=== PATIENT | male | born 1975 | race Caucasian/White ===

== ENCOUNTER 2020-12-02 20:17 | Emergency (ER) | payer MEDICARE ==
[~2020-12-02] VITALS: Ht 182.9 cm; Wt 106.6 kg
[2020-12-02] MEDS ORDERED: CLONAZEPAM 0.5 MG TABLET PO ONE (21:00)
[2020-12-02] MEDS ORDERED: CLONAZEPAM 0.5 MG TABLET ONE ×2 (21:07→21:09)
--- NOTE | 2020-12-02 21:23 | NUR ---
Patient given written and verbal discharge instructions. Patient verbalizes understanding of instructions. Patient is ambulatory with steady gait. Refuses offer of nursing home placement. Patient given list of available shelters in surrounding area. Patient out of ER with steady gait, provided with food and water per patient request, VSS, no acute signs of distress, all belongings taken, refused all other services available at this time.
[2020-12-02 21:26] VITALS: BP 117/81
== END 2020-12-02 21:26 | disposition home or self-care (01) ==
LOC: ER 20:27
DX: F41.9 Anxiety disorder, unspecified (principal); Z76.0 Encounter for issue of repeat prescription; J44.9 Chronic obstructive pulmonary disease, unspecified; Z59.0 Homelessness; F17.210 Nicotine dependence, cigarettes, uncomplicated
CPT/HCPCS: A4663

== ENCOUNTER 2020-12-03 16:29 | Emergency (ER) | payer MEDICARE ==
[~2020-12-03] VITALS: Ht 182.9 cm; Wt 106.6 kg
--- NOTE | 2020-12-03 16:52 | NUR ---
at bedside for assessment
[2020-12-03] MEDS ORDERED: CLONAZEPAM 0.5 MG TABLET PO ONE (17:00)
[2020-12-03] MEDS ORDERED: CLONAZEPAM 0.5 MG TABLET ONE (17:03)
--- NOTE | 2020-12-03 17:08 | NUR ---
Patient discharged to home in stable condition. Took all belongings. No signs of acute ditress noted. Written and verbal after care instructions given. Patient verbalizes understanding of instructions. Stressed follow up or return to ER for worsening s/s.
[2020-12-03 17:10] VITALS: BP 118/80
== END 2020-12-03 17:10 | disposition home or self-care (01) ==
LOC: ER 16:32
DX: F41.9 Anxiety disorder, unspecified (principal); Z76.0 Encounter for issue of repeat prescription; J44.9 Chronic obstructive pulmonary disease, unspecified; F17.210 Nicotine dependence, cigarettes, uncomplicated; Z59.0 Homelessness
CPT/HCPCS: A4663

== ENCOUNTER 2022-03-23 21:31 | Emergency (ER) | payer MEDICARE ==
[~2022-03-23] VITALS: Ht 182.9 cm; Wt 95.3 kg
[~2022-03-23 21:31] MED LIST: ALBU6.7H9 INH; CLON1TAB PO
--- NOTE | 2022-03-23 21:50 | NUR ---
Dr. Harrington at bedside. MSE in progress.
[2022-03-23] MEDS ORDERED: CLON2TAB11 PO (22:03)
[2022-03-23] MEDS ORDERED: CLONAZEPAM 1 MG TABLET ONE (22:09)
--- NOTE | 2022-03-23 22:12 | NUR ---
Patient discharged to home in stable condition. A/O x4. NAD noted. [employer] with patient. Written and verbal after care instructions given. Patient verbalizes understanding of instructions. Stressed follow up or return to ER for worsening s/s.
[2022-03-23] MEDS ORDERED: CLONAZEPAM 0.5 MG TABLET PO ONE (22:15)
[2022-03-23 23:06] VITALS: BP 120/78
== END 2022-03-23 22:12 | disposition home or self-care (01) ==
LOC: MERGE 21:31 → ER 21:31
DX: F41.9 Anxiety disorder, unspecified (principal); J44.9 Chronic obstructive pulmonary disease, unspecified; F17.210 Nicotine dependence, cigarettes, uncomplicated; Z79.899 Other long term (current) drug therapy
CPT/HCPCS: A4663

== ENCOUNTER 2022-04-01 21:06 | Emergency (ER) | payer MEDICARE ==
[~2022-04-01] VITALS: Ht 177.8 cm; Wt 90.7 kg
[~2022-04-01 21:06] MED LIST changes: +CLON2TAB11 PO
--- NOTE | 2022-04-01 22:15 | NUR ---
Dr Gold at bedside MSE in progress
[2022-04-01] MEDS ORDERED: CLON1TAB PO (22:31)
--- NOTE | 2022-04-01 22:35 | NUR ---
Patient discharged to home in stable condition. Written and verbal after care instructions given. Patient verbalizes understanding of instructions. Stressed follow up or return to ER for worsening s/s. Patient is a/ox4, NAD noted. Patient is able to walk with steady gait
[2022-04-01 22:42] VITALS: BP 132/71
== END 2022-04-01 22:35 | disposition home or self-care (01) ==
LOC: ER 21:09
DX: F41.9 Anxiety disorder, unspecified (principal); Z76.0 Encounter for issue of repeat prescription; Z59.00 Homelessness unspecified; F17.210 Nicotine dependence, cigarettes, uncomplicated; J44.9 Chronic obstructive pulmonary disease, unspecified
CPT/HCPCS: A4663

== ENCOUNTER 2022-04-04 00:50 | Emergency (ER) | payer MEDICARE ==
[~2022-04-04] VITALS: Ht 177.8 cm; Wt 90.7 kg
[2022-04-04] MEDS ORDERED: ASPIRIN 81 MG TAB.CHEW PO ONE (02:15)
[2022-04-04] MEDS ORDERED: ASPIRIN 81 MG TAB.CHEW ONE (02:23)
[2022-04-04 02:28] LABS: HEMATOCRIT 43.5 % (36.7-47.1); MEAN CORPUSCULAR HEMOGLOBIN 32.3 uug (23.8-33.4); MEAN CORPUSCULAR VOLUME 92.1 fL (73.0-96.2); PLATELET COUNT (AUTO) 210 K/uL (152-348)
[2022-04-04 02:33] LABS: CARBON DIOXIDE 30 mmol/L (21-32); CHLORIDE 105 mmol/L (98-107); GLUCOSE 123 mg/dL (74-106); POTASSIUM 3.4 mmol/L (3.5-5.1); UREA NITROGEN, BLOOD 13 mg/dL (7-18)
[2022-04-04 02:45] LABS: ALANINE AMINOTRANSFERASE 24 U/L (16-63); ALKALINE PHOSPHATASE 63 U/L (50-136); ASPARTATE AMINOTRANSFERASE 17 U/L (15-37); BILIRUBIN,DIRECT 0.1 mg/dL (0.0-0.2); BILIRUBIN,TOTAL 0.5 mg/dL (0.2-1.0); TOTAL PROTEIN, SERUM 6.2 g/dL (6.4-8.2)
[2022-04-04 03:01] LABS: MAGNESIUM 1.8 mg/dL (1.8-2.4)
[2022-04-04] MEDS ORDERED: POTASSIUM BICARBONATE/CIT AC 25 MEQ TABLET.EFF PO ONE (04:30)
[2022-04-04] MEDS ORDERED: CYANOCOBALAMIN 1000 MCG/ML VIAL IM ONE (04:30)
[2022-04-04] MEDS ORDERED: MAGNESIUM SULFATE/D5W 300 ML ONE (04:31)
[2022-04-04] MEDS ORDERED: CYANOCOBALAMIN 1000 MCG/ML VIAL ONE (04:31)
[2022-04-04] MEDS ORDERED: POTASSIUM BICARBONATE/CIT AC 25 MEQ TABLET.EFF ONE (04:31)
[2022-04-04] MEDS: MAGNESIUM SULFATE/D5W 100 ML IV SCH ×3 (04:45→05:31)
--- NOTE | 2022-04-04 04:48 | NUR ---
Patient is a/ox4, NAD noted.
[2022-04-04] MEDS ORDERED: CLON1TAB PO (05:05)
--- NOTE | 2022-04-04 05:43 | NUR ---
Patient discharged to home in stable condition. Written and verbal after care instructions given. Patient verbalizes understanding of instructions. Stressed follow up or return to ER for worsening s/s. Patient is a/ox4, NAD noted, Patient is able to walk with steady gait
[2022-04-04 06:02] VITALS: BP 128/81
== END 2022-04-04 06:02 | disposition home or self-care (01) ==
LOC: ER 00:53
DX: R07.89 Other chest pain (principal); E83.42 Hypomagnesemia; F41.9 Anxiety disorder, unspecified; E87.6 Hypokalemia; Z59.00 Homelessness unspecified; F17.210 Nicotine dependence, cigarettes, uncomplicated; J44.9 Chronic obstructive pulmonary disease, unspecified; Z79.899 Other long term (current) drug therapy; R06.2 Wheezing
CPT/HCPCS: 99285; 96365; 71045; 80076; 80048; 82607; 83880; 83735; 85025; 85379; 84484; 36415; 93005; 96372; J3420; J3475; A4663

== ENCOUNTER 2022-04-07 22:57 | Emergency (ER) | payer MEDICARE ==
[~2022-04-07] VITALS: Ht 182.9 cm; Wt 95.3 kg
--- NOTE | 2022-04-07 23:30 | NUR ---
Dr. Ahumada at bedside for MSE.
--- NOTE | 2022-04-07 23:40 | NUR ---
Pt out of ER for CT.
--- NOTE | 2022-04-07 23:50 | NUR ---
Pt back to ER from CT.
[2022-04-08] MEDS ORDERED: ASPIRIN 325 MG TABLET ONE (00:44)
[2022-04-08] MEDS ORDERED: POTASSIUM BICARBONATE/CIT AC 25 MEQ TABLET.EFF ONE (00:44)
[2022-04-08] MEDS ORDERED: POTASSIUM BICARBONATE/CIT AC 25 MEQ TABLET.EFF PO ONE (00:45)
[2022-04-08] MEDS ORDERED: ASPIRIN 325 MG TABLET PO ONE (00:45)
--- NOTE | 2022-04-08 00:52 | NUR ---
Patient given written and verbal discharge instructions. Patient verbalizes understanding of instructions. Patient is ambulatory with steady gait. Refuses offer of long-term placement. Patient given list of available shelters in surrounding area. Pt provided with food and juice per patient request, refuses all other services available at this time, VSS, no acute signs of distress, all belongings taken.
[2022-04-08 00:53] VITALS: BP 104/69
== END 2022-04-08 00:54 | disposition home or self-care (01) ==
LOC: ER 23:01
DX: R42 Dizziness and giddiness (principal); E53.8 Deficiency of other specified B group vitamins; Z59.00 Homelessness unspecified; F17.210 Nicotine dependence, cigarettes, uncomplicated; J44.9 Chronic obstructive pulmonary disease, unspecified; F41.9 Anxiety disorder, unspecified
CPT/HCPCS: 70450; A4663

== ENCOUNTER 2022-06-17 15:36 | Emergency (ER) | payer MEDICARE ==
[~2022-06-17] VITALS: Ht 182.9 cm; Wt 97.5 kg
[2022-06-17] MEDS ORDERED: ALBU6.7H9 INH (16:34)
[2022-06-17] MEDS ORDERED: CLON2TAB11 PO (16:34)
[2022-06-17] MEDS ORDERED: CLONAZEPAM 0.5 MG TABLET PO ONE (16:45)
[2022-06-17] MEDS ORDERED: CLONAZEPAM 1 MG TABLET ONE (16:51)
[2022-06-17] MEDS ORDERED: ACETAMINOPHEN 325 MG TABLET PO ONE (17:15)
[2022-06-17] MEDS ORDERED: ACETAMINOPHEN 325 MG TABLET ONE (17:18)
[2022-06-17 17:40] LABS: HEMATOCRIT 47.2 % (36.7-47.1); MEAN CORPUSCULAR HEMOGLOBIN 31.1 uug (23.8-33.4); MEAN CORPUSCULAR VOLUME 92.1 fL (73.0-96.2); PLATELET COUNT (AUTO) 272 K/uL (152-348)
[2022-06-17 18:01] LABS: CARBON DIOXIDE 27 mmol/L (21-32); CHLORIDE 106 mmol/L (98-107); CREATININE 0.9 mg/dL (0.6-1.3); GLUCOSE 93 mg/dL (74-106); UREA NITROGEN, BLOOD 15 mg/dL (7-18)
[2022-06-17 18:05] LABS: ALANINE AMINOTRANSFERASE 41 U/L (16-63); ALKALINE PHOSPHATASE 79 U/L (50-136); ASPARTATE AMINOTRANSFERASE 30 U/L (15-37); BILIRUBIN,DIRECT 0.1 mg/dL (0.0-0.2); BILIRUBIN,TOTAL 0.5 mg/dL (0.2-1.0); TOTAL PROTEIN, SERUM 7.2 g/dL (6.4-8.2)
--- NOTE | 2022-06-17 18:23 | NUR ---
Patient discharged to home in stable condition. Written and verbal after care instructions given. Patient verbalizes understanding of instructions. Stressed follow up or return to ER for worsening s/s.
[2022-06-17 19:03] VITALS: BP 152/75
== END 2022-06-17 18:30 | disposition home or self-care (01) ==
LOC: ER 15:36
DX: F41.9 Anxiety disorder, unspecified (principal); R07.9 Chest pain, unspecified; Z59.00 Homelessness unspecified; F17.210 Nicotine dependence, cigarettes, uncomplicated; J44.9 Chronic obstructive pulmonary disease, unspecified
CPT/HCPCS: 36415; 71045; 84484; 85025; 93005; A4663

== ENCOUNTER 2022-09-19 22:41 | Emergency (ER) | payer MEDICARE ==
[~2022-09-19] VITALS: Ht 182.9 cm; Wt 99.8 kg
[~2022-09-19 22:41] MED LIST changes: -CLON1TAB PO
--- NOTE | 2022-09-19 23:33 | NUR ---
PATIENT AMBULATED TO ROOM, INFORMED OF PLAN OF CARE, NO S/S OF ANY DISTRESS NOTED AT THIS TIME. AWAITING MD EXAM.
[2022-09-20] MEDS ORDERED: CLON2TAB PO (00:01)
--- NOTE | 2022-09-20 00:06 | NUR ---
Patient discharged to home in stable condition. A/O x 4. NAD noted. Ambulatory with a steady gait. All belongings with patient. Written and verbal after care instructions given. Patient verbalizes understanding of instructions. Stressed follow up or return to ER for worsening s/s.
== END 2022-09-20 00:07 | disposition home or self-care (01) ==
LOC: ER 22:41
DX: F41.8 Other specified anxiety disorders (principal); J44.9 Chronic obstructive pulmonary disease, unspecified; F17.210 Nicotine dependence, cigarettes, uncomplicated; Z71.6 Tobacco abuse counseling; Z76.0 Encounter for issue of repeat prescription; Z79.899 Other long term (current) drug therapy; Z59.00 Homelessness unspecified
CPT/HCPCS: A4663

== ENCOUNTER 2022-09-23 00:58 | Emergency (ER) | payer MEDICARE ==
[~2022-09-23] VITALS: Ht 182.9 cm; Wt 99.8 kg
[~2022-09-23 00:58] MED LIST changes: +CLON2TAB PO
[2022-09-23 01:48] LABS: HEMATOCRIT 43.6 % (36.7-47.1); MEAN CORPUSCULAR VOLUME 90.5 fL (73.0-96.2); PLATELET COUNT (AUTO) 237 K/uL (152-348)
[2022-09-23 01:56] LABS: CARBON DIOXIDE 27 mmol/L (21-32); CHLORIDE 106 mmol/L (98-107); GLUCOSE 91 mg/dL (74-106); UREA NITROGEN, BLOOD 28 mg/dL (7-18)
[2022-09-23 01:57] LABS: ETHANOL < 3 MG/DL (0-0)
--- NOTE | 2022-09-23 02:00 | NUR ---
Patient A/Ox4, wants to be placed for his depression.
[2022-09-23 02:02] LABS: ALANINE AMINOTRANSFERASE 42 U/L (16-63); ALKALINE PHOSPHATASE 70 U/L (50-136); ASPARTATE AMINOTRANSFERASE 20 U/L (15-37); BILIRUBIN,DIRECT 0.2 mg/dL (0.0-0.2); BILIRUBIN,TOTAL 0.8 mg/dL (0.2-1.0); TOTAL PROTEIN, SERUM 6.3 g/dL (6.4-8.2)
[2022-09-23 02:29] LABS: ACETAMINOPHEN < 2.0 ug/mL (10-30)
[2022-09-23 03:09] LABS: *BILIRUBIN,URIN NEGATIVE (NEGATIVE); *BLOOD, URINE NEGATIVE (NEGATIVE); *CLARITY,URINE CLEAR (CLEAR); *COLOR,URINE YELLOW (YELLOW); *KETONES,URINE NEGATIVE (NEGATIVE); *UROBILINOGEN,URINE 0.2 E.U./dl (NORMAL); LEUKOCYTE ESTERASE ,URINE NEGATIVE (NEGATIVE); NITRITE, URINE NEGATIVE (NEGATIVE); PH,URINE 6.5 (5.0-8.0); UGLUCOSE NEGATIVE (NEGATIVE)
[2022-09-23 03:21] LABS: *AMPHETAMINE, URINE NEGATIVE (NEGATIVE); *CANNABINOID, URINE NEGATIVE (NEGATIVE); *COCCAINE, URINE NEGATIVE (NEGATIVE); *PHENCYCLIDINE SCREEN,URINE NEGATIVE (NEGATIVE)
--- NOTE | 2022-09-23 03:30 | NUR ---
Patient in bed, food provided. No acute distress noted. Patient is cooperative, and complying with staff.
--- NOTE | 2022-09-23 03:33 | NUR ---
Patient medically cleared by Dr. Magana.
--- NOTE | 2022-09-23 03:44 | NUR ---
Faxed Facesheet and summary report to Nasima Smith.
--- NOTE | 2022-09-23 04:59 | NUR ---
Patient decided that he feels better and just needed a place to sleep. Patient given written and verbal discharge instructions. Patient verbalizes understanding of instructions. Patient is ambulatory with steady gait. Refuses offer of custodial placement. Patient given list of available shelters in surrounding area. Offered resources, patient refused to sign the discharge papers.
[2022-09-23 05:00] VITALS: BP 128/71
== END 2022-09-23 05:01 | disposition home or self-care (01) ==
LOC: ER 01:01
DX: F32.9 Major depressive disorder, single episode, unspecified (principal); L55.9 Sunburn, unspecified; J44.9 Chronic obstructive pulmonary disease, unspecified; F17.210 Nicotine dependence, cigarettes, uncomplicated; Z59.00 Homelessness unspecified; Z79.899 Other long term (current) drug therapy; Z20.822 Contact with and (suspected) exposure to COVID-19
CPT/HCPCS: 36415; 85025; A4663; G0480

== ENCOUNTER 2022-09-23 08:15 | Emergency (ER) | payer MEDICARE ==
[~2022-09-23] VITALS: Ht 188 cm; Wt 99.8 kg
--- NOTE | 2022-09-23 08:55 | NUR ---
Dr Harrington evaluated the pt.
--- NOTE | 2022-09-23 09:08 | NUR ---
Pt is to go voluntary to [facility]. Pt is aware and agreed.
--- NOTE | 2022-09-23 09:33 | NUR ---
Report given to Gabi at [facility].
--- NOTE | 2022-09-23 09:34 | NUR ---
Pt's ride that was arranged by flavia loera for [facility] is here to pickup pt.
--- NOTE | 2022-09-23 09:35 | NUR ---
Pt left ER in stable codition. All belonging sent w/ pt.
== END 2022-09-23 09:45 ==
LOC: ER 08:15
DX: R45.851 Suicidal ideations (principal); F41.9 Anxiety disorder, unspecified; F32.A Depression, unspecified; J44.9 Chronic obstructive pulmonary disease, unspecified; F17.210 Nicotine dependence, cigarettes, uncomplicated; Z59.00 Homelessness unspecified; Z79.899 Other long term (current) drug therapy
CPT/HCPCS: A4663

== ENCOUNTER 2022-10-22 00:21 | Emergency (ER) | payer MEDICARE ==
[~2022-10-22] VITALS: Ht 188 cm; Wt 99.8 kg
--- NOTE | 2022-10-22 00:38 | NUR ---
Dr lacy into eval patient.
[2022-10-22] MEDS ORDERED: CLON2TAB11 PO (00:58)
[2022-10-22 01:11] VITALS: BP 129/78
== END 2022-10-22 01:12 | disposition home or self-care (01) ==
LOC: ER 00:24
DX: F41.8 Other specified anxiety disorders (principal); J44.9 Chronic obstructive pulmonary disease, unspecified; F17.210 Nicotine dependence, cigarettes, uncomplicated; Z59.00 Homelessness unspecified; Z79.899 Other long term (current) drug therapy
CPT/HCPCS: A4663

== ENCOUNTER → 2022-11-17 | Emergency (ER) | payer MEDICARE, OTHER ==
[~2022-11-17] VITALS: Ht 182.9 cm; Wt 102.1 kg
[~2022-11-17] MED LIST changes: +CLON1TAB PO; +CLONAZEPAM 0.5 MG TABLET PO ONE; +CLONAZEPAM 1 MG TABLET ONE
--- NOTE | 2022-11-17 00:29 | NUR ---
Dr. Harrington evaluated patient at bedside. MSE in progress.
--- NOTE | 2022-11-17 00:34 | NUR ---
Patient requesting food, patient given ham sandwhich, fruit cup and apple juice.
--- NOTE | 2022-11-17 00:41 | NUR ---
Patient signed homeless waiver form.
--- NOTE | 2022-11-17 00:42 | NUR ---
Patient given printed packet with resources (penitentiary, food)
== END | disposition home or self-care (01) ==
LOC: ER 00:14
DX: F41.9 Anxiety disorder, unspecified (principal); F19.90 Other psychoactive substance use, unspecified, uncomplicated; J44.9 Chronic obstructive pulmonary disease, unspecified; F17.210 Nicotine dependence, cigarettes, uncomplicated; Z76.0 Encounter for issue of repeat prescription; Z79.899 Other long term (current) drug therapy
CPT/HCPCS: A4663

== ENCOUNTER 2022-12-21 02:03 | Emergency (ER) | payer MEDICARE, OTHER ==
[~2022-12-21] VITALS: Ht 182.9 cm; Wt 102.1 kg
[~2022-12-21 02:03] MED LIST changes: -CLONAZEPAM 0.5 MG TABLET PO ONE; -CLONAZEPAM 1 MG TABLET ONE
--- NOTE | 2022-12-21 05:51 | NUR ---
Patient ambulated to room, informed of plan of care, awaiting ER provider exam. No s/s of any distress noted. Moist cough noted, will continue to monitor.
[2022-12-21] MEDS ORDERED: IPRATROPIUM BROMIDE 0.5 MG/2.5 ML NEBU NEB ONE (06:45)
[2022-12-21] MEDS ORDERED: ALBUTEROL SULFATE 2.5 MG/3 ML NEBU NEB ONE (06:45)
[2022-12-21] MEDS ORDERED: predniSONE 50 MG TABLET ONE (06:45)
[2022-12-21] MEDS ORDERED: predniSONE 50 MG TABLET PO ONE (06:45)
--- NOTE | 2022-12-21 06:48 | NUR ---
Patient medicated as per order.
[2022-12-21] MEDS ORDERED: CLONAZEPAM 0.5 MG TABLET ONE (07:06)
[2022-12-21] MEDS ORDERED: CLONAZEPAM 0.5 MG TABLET PO ONE (07:15)
[2022-12-21] MEDS ORDERED: ALBUTEROL SULFATE 2.5 MG/3 ML NEBU ONE (07:18)
[2022-12-21] MEDS ORDERED: IPRATROPIUM BROMIDE 0.5 MG/2.5 ML NEBU ONE (07:18)
[2022-12-21] MEDS ORDERED: AZIT250T13 PO (08:37)
[2022-12-21] MEDS ORDERED: ALBU18HF2 INH (08:37)
[2022-12-21] MEDS ORDERED: PRED20TA PO (08:37)
[2022-12-21] MEDS ORDERED: CLON1TAB PO (08:37)
--- NOTE | 2022-12-21 08:55 | NUR ---
PT WAS D/C'd TO HOME. D/C INSTRUCTIONS GIVEN TO THE PT BY DR QUACH.
[2022-12-21 08:56] VITALS: BP 130/87; TEMP 98.2; O2SAT 97
== END 2022-12-21 08:58 | disposition home or self-care (01) ==
LOC: ER 02:03
DX: F41.8 Other specified anxiety disorders (principal); J44.9 Chronic obstructive pulmonary disease, unspecified; R07.89 Other chest pain; F17.210 Nicotine dependence, cigarettes, uncomplicated; Z76.0 Encounter for issue of repeat prescription; Z59.00 Homelessness unspecified; Z79.899 Other long term (current) drug therapy
CPT/HCPCS: 99283; 71045; 94640; J7512; A4663; J3590

== ENCOUNTER 2023-01-01 02:06 | Emergency (ER) | payer MEDICARE, OTHER ==
[~2023-01-01] VITALS: Ht 182.9 cm; Wt 102.1 kg
[~2023-01-01 02:06] MED LIST changes: +ALBU18HF2 INH; +AZIT250T13 PO; +PRED20TA PO
[2023-01-01 03:04] LABS: BASOPHILS # (AUTO) 0.1 K/UL (0.0-0.2); BASOPHILS % (AUTO) 1.1 % (0.0-2.0); EOSINOPHILS # (AUTO) 0.4 K/uL (0.0-0.7); EOSINOPHILS % (AUTO) 4.4 % (0.0-7.0); HEMATOCRIT 47.2 % (36.7-47.1); HEMOGLOBIN 16.2 g/dL (12.5-16.3); LYMPHOCYTES # (AUTO) 3.1 K/uL (0.8-4.8); LYMPHOCYTES % (AUTO) 37.4 % (20.5-51.5); MEAN CORPUSCULAR HGB CONC 34 g/dL (32.5-36.3); MEAN CORPUSCULAR VOLUME 90.7 fL (73.0-96.2); MONOCYTES # (AUTO) 0.7 K/uL (0.1-1.30); NEUTROPHILS # (AUTO) 4.1 K/uL (1.8-8.9); NEUTROPHILS % (AUTO) 49.1 % (38.5-71.5); PLATELET COUNT (AUTO) 247 K/uL (152-348); RED CELL DISTRIBUTION WIDTH 12.8 % (12.1-16.2); WHITE BLOOD COUNT (AUTO) 8.3 K/uL (3.6-10.2)
[2023-01-01 03:11] LABS: *BILIRUBIN,URIN NEGATIVE (NEGATIVE); *BLOOD, URINE NEGATIVE (NEGATIVE); *CLARITY,URINE CLEAR (CLEAR); *COLOR,URINE YELLOW (YELLOW); *KETONES,URINE NEGATIVE (NEGATIVE); *PROTEIN,URINE TRACE (NEGATIVE); *UROBILINOGEN,URINE 0.2 E.U./dl (NORMAL); LEUKOCYTE ESTERASE ,URINE NEGATIVE (NEGATIVE); NITRITE, URINE NEGATIVE (NEGATIVE); UGLUCOSE NEGATIVE (NEGATIVE)
[2023-01-01 03:23] LABS: CALCIUM 8.9 mg/dL (8.5-10.1); CARBON DIOXIDE 31 mmol/L (21-32); CHLORIDE 105 mmol/L (98-107); GLUCOSE 100 mg/dL (74-106); POTASSIUM 3.6 mmol/L (3.5-5.1); SODIUM SERUM 142 mmol/L (136-145); UREA NITROGEN, BLOOD 14 mg/dL (7-18)
[2023-01-01 03:26] LABS: DIFFERENTIAL COMMENT 1
[2023-01-01 03:27] LABS: ETHANOL < 3 MG/DL (0-10)
[2023-01-01 03:29] LABS: ALANINE AMINOTRANSFERASE 20 U/L (16-63); ALKALINE PHOSPHATASE 75 U/L (50-136); ASPARTATE AMINOTRANSFERASE 11 U/L (15-37); BILIRUBIN,DIRECT 0.3 mg/dL (0.0-0.2); BILIRUBIN,TOTAL 1.7 mg/dL (0.2-1.0); TOTAL PROTEIN, SERUM 7.2 g/dL (6.4-8.2)
[2023-01-01 03:30] LABS: ACETAMINOPHEN < 2.0 ug/mL (10-30)
[2023-01-01 03:39] LABS: *AMPHETAMINE, URINE NEGATIVE (NEGATIVE); *BARBITURATE, URINE NEGATIVE (NEGATIVE); *BENZODIAZEPINE, URINE NEGATIVE (NEGATIVE); *CANNABINOID, URINE NEGATIVE (NEGATIVE); *COCCAINE, URINE NEGATIVE (NEGATIVE); *OPIATE, URINE NEGATIVE (NEGATIVE); *PHENCYCLIDINE SCREEN,URINE NEGATIVE (NEGATIVE); FENTANYL, URINE NEGATIVE (NEGATIVE)
[2023-01-01 09:15] VITALS: O2SAT 97
== END 2023-01-01 12:00 | disposition short-term general hospital (02) ==
LOC: ER 02:09
DX: F32.9 Major depressive disorder, single episode, unspecified (principal); R45.851 Suicidal ideations; J44.9 Chronic obstructive pulmonary disease, unspecified; F17.210 Nicotine dependence, cigarettes, uncomplicated; Z59.00 Homelessness unspecified; Z79.2 Long term (current) use of antibiotics; Z79.899 Other long term (current) drug therapy
CPT/HCPCS: 36415; 85025; A4663; G0480

== ENCOUNTER 2023-07-24 07:50 | Emergency (ER) | payer MEDICARE, OTHER ==
[~2023-07-24] VITALS: Ht 182.9 cm; Wt 102.1 kg
[2023-07-24 08:45] LABS: BASOPHILS # (AUTO) 0.1 K/UL (0.0-0.2); BASOPHILS % (AUTO) 1.3 % (0.0-2.0); EOSINOPHILS # (AUTO) 0.5 K/uL (0.0-0.7); EOSINOPHILS % (AUTO) 4.1 % (0.0-7.0); HEMATOCRIT 43.5 % (36.7-47.1); HEMOGLOBIN 14.9 g/dL (12.5-16.3); LYMPHOCYTES # (AUTO) 1.9 K/uL (0.8-4.8); MEAN CORPUSCULAR HEMOGLOBIN 30.7 uug (23.8-33.4); MEAN CORPUSCULAR HGB CONC 34 g/dL (32.5-36.3); MEAN CORPUSCULAR VOLUME 89.5 fL (73.0-96.2); MONOCYTES % (AUTO) 8.3 % (0.0-11.0); NEUTROPHILS # (AUTO) 8.3 K/uL (1.8-8.9); NEUTROPHILS % (AUTO) 70.3 % (38.5-71.5); PLATELET COUNT (AUTO) 284 K/uL (152-348); RED BLOOD CELL COUNT(AUTO) 4.86 MIL/uL (4.06-5.63); RED CELL DISTRIBUTION WIDTH 13.4 % (12.1-16.2); WHITE BLOOD COUNT (AUTO) 11.7 K/uL (3.6-10.2)
[2023-07-24 08:49] LABS: DIFFERENTIAL COMMENT 1
[2023-07-24 08:53] LABS: CALCIUM 8.6 mg/dL (8.5-10.1); CARBON DIOXIDE 33 mmol/L (21-32); CHLORIDE 102 mmol/L (98-107); GLUCOSE 97 mg/dL (74-106); POTASSIUM 4.1 mmol/L (3.5-5.1); SODIUM SERUM 138 mmol/L (136-145); UREA NITROGEN, BLOOD 11 mg/dL (7-18)
[2023-07-24 09:02] LABS: ALANINE AMINOTRANSFERASE 28 U/L (16-63); ALBUMIN 3.3 g/dL (3.4-5.0); ALKALINE PHOSPHATASE 90 U/L (50-136); ASPARTATE AMINOTRANSFERASE 19 U/L (15-37); BILIRUBIN,DIRECT 0.2 mg/dL (0.0-0.2); BILIRUBIN,TOTAL 0.6 mg/dL (0.2-1.0); TOTAL PROTEIN, SERUM 6.8 g/dL (6.4-8.2)
[2023-07-24 09:11] LABS: ACETAMINOPHEN < 2.0 ug/mL (10-30)
[2023-07-24 09:22] LABS: ETHANOL < 3 MG/DL (0-10)
[2023-07-24] MEDS ORDERED: ALBUTEROL SULFATE 2.5 MG/3 ML NEBU ONE (09:41)
[2023-07-24] MEDS ORDERED: IPRATROPIUM BROMIDE 0.5 MG/2.5 ML NEBU ONE (09:42)
[2023-07-24 09:43] VITALS: O2SAT 95
[2023-07-24] MEDS: IPRATROPIUM BROMIDE 0.5 MG/2.5 ML NEBU NEB ONE (09:43)
[2023-07-24] MEDS: ALBUTEROL SULFATE 2.5 MG/3 ML NEBU NEB ONE (09:43)
[2023-07-24] MEDS ORDERED: methylPREDNISolone SOD SUCC 125 MG/2 ML VIAL ONE (09:44)
[2023-07-24] MEDS: methylPREDNISolone SOD SUCC 125 MG/2 ML VIAL IV ONE (09:55)
[2023-07-24 10:13] VITALS: O2SAT 100
[2023-07-24] MEDS: IV NS 1000 ML 1,000 ML IV ONE (10:30)
[2023-07-24 14:28] LABS: *BILIRUBIN,URIN NEGATIVE (NEGATIVE); *BLOOD, URINE NEGATIVE (NEGATIVE); *CLARITY,URINE CLEAR (CLEAR); *COLOR,URINE YELLOW (YELLOW); *KETONES,URINE NEGATIVE (NEGATIVE); *PROTEIN,URINE NEGATIVE (NEGATIVE); *UROBILINOGEN,URINE 0.2 E.U./dl (NORMAL); LEUKOCYTE ESTERASE ,URINE NEGATIVE (NEGATIVE); NITRITE, URINE NEGATIVE (NEGATIVE); UGLUCOSE NEGATIVE (NEGATIVE)
[2023-07-24 14:32] LABS: *AMPHETAMINE, URINE NEGATIVE (NEGATIVE); *BARBITURATE, URINE NEGATIVE (NEGATIVE); *BENZODIAZEPINE, URINE NEGATIVE (NEGATIVE); *CANNABINOID, URINE NEGATIVE (NEGATIVE); *COCCAINE, URINE NEGATIVE (NEGATIVE); *OPIATE, URINE NEGATIVE (NEGATIVE); *PHENCYCLIDINE SCREEN,URINE NEGATIVE (NEGATIVE); FENTANYL, URINE NEGATIVE (NEGATIVE)
[2023-07-24] MEDS: ACETAMINOPHEN ES 500 MG TABLET PO ONE (21:28)
[2023-07-24 21:29] VITALS: BP 107/68; TEMP 98.5; O2SAT 96
== END 2023-07-24 21:30 | disposition home or self-care (01) ==
LOC: ER 07:50
DX: R45.851 Suicidal ideations (principal); F41.9 Anxiety disorder, unspecified; Z98.890 Other specified postprocedural states; Z79.899 Other long term (current) drug therapy; Z59.00 Homelessness unspecified
CPT/HCPCS: 80076; 80048; 81003; 85025; 84484; 36415; 93005; 71045; 94640; 99285; 96361; 96374; 87420; 80299; 80320; 80307; J2930; J7040; 94760; A4606; A4663; G0480; J3590

== ENCOUNTER 2024-10-14 18:07 | Emergency (ER) | payer MEDICARE ==
[~2024-10-14] VITALS: Ht 182.9 cm; Wt 113.4 kg
[~2024-10-14 18:07] MED LIST changes: +ACET1TAB23 PO; +PRED50TA PO
[2024-10-14] MEDS ORDERED: CLONAZEPAM 0.5 MG TABLET ONE (19:40)
[2024-10-14] MEDS: CLONAZEPAM 0.5 MG TABLET PO ONE (19:42)
[2024-10-14] MEDS ORDERED: CLON1TAB PO (20:35)
[2024-10-14 20:50] VITALS: BP 134/88; TEMP 98; O2SAT 96
== END 2024-10-14 20:51 | disposition home or self-care (01) ==
LOC: ER 18:19
DX: F41.9 Anxiety disorder, unspecified (principal); F13.20 Sedative, hypnotic or anxiolytic dependence, uncomplicated; J44.9 Chronic obstructive pulmonary disease, unspecified; F17.210 Nicotine dependence, cigarettes, uncomplicated; Z59.00 Homelessness unspecified; Z76.0 Encounter for issue of repeat prescription; Z79.52 Long term (current) use of systemic steroids; Z79.899 Other long term (current) drug therapy; Z98.890 Other specified postprocedural states
CPT/HCPCS: A4606; A4663